=== PATIENT | female | born 1950 | race American Indian/Alaskan Native ===

== ENCOUNTER 2019-08-17 21:34 | Emergency (ER) | payer MEDICARE ==
--- NOTE | 2019-08-17 21:40 | Emergency Department Report ---
Blank Doc - Documentation Documentation: 69-year-old female that presents with SOB, chest tightness, and vomiting. This initial assessment/diagnostic orders/clinical plan/treatment(s) is/are subject to change based on patient's health status, clinical progression and re- assessment by fellow clinical providers in the ED. Further treatment and workup at subsequent clinical providers discretion. Patient/guardians urged not to elope from the ED as their condition may be serious if not clinically assessed and managed. Initial orders include: 1- Patient sent to MAIN ED for further evaluation and treatment 2- cardiac workup
[2019-08-17] MEDS ORDERED: IPRATROPIUM/ALBUTEROL SULFATE 3 ML AMPUL.NEB IH ONE (21:42)
[2019-08-17 22:17] LABS: Basophils % (Auto) 0.4 % (0.0-1.8); Eosinophils # (Auto) 0.5 K/mm3 (0.0-0.4); Eosinophils % (Auto) 5.1 % (0.0-4.3); Hematocrit 39.8 % (30.3-42.9); Hemoglobin 12.8 gm/dl (10.1-14.3); Lymphocytes # (Auto) 2.2 K/mm3 (1.2-5.4); Lymphocytes % (Auto) 24.8 % (13.4-35.0); Mean Corpuscular HGB Conc 32 % (30-34); Mean Corpuscular Volume 86 fl (79-97); Monocytes # (Auto) 0.6 K/mm3 (0.0-0.8); Monocytes % (Auto) 6.6 % (0.0-7.3); Platelet Count 270 K/mm3 (140-440); Red Blood Count 4.62 M/mm3 (3.65-5.03); Red Cell Distribution Width 15.4 % (13.2-15.2)
[2019-08-17 22:29] LABS: INR 0.91 (0.87-1.13); Partial Thromboplastin Time 31.7 Sec. (24.2-36.6)
[2019-08-17 22:34] LABS: Alanine Aminotransferase 15 units/L (7-56); Albumin 3.9 g/dL (3.9-5); BUN/Creatinine Ratio 7; Blood Urea Nitrogen 11 mg/dL (7-17); Calcium 8.8 mg/dL (8.4-10.2); Hemolysis Index 26
[2019-08-17] MEDS ORDERED: ONDANSETRON 4 MG/2 ML INJ IV ONE (22:48)
[2019-08-17] MEDS ORDERED: dexAMETHasone 20 MG/5 ML VIAL IV ONE (22:48)
[2019-08-17] MEDS ORDERED: ALBUTEROL 2.5 MG/3 ML NEBU IH ONE (22:48)
[2019-08-17] MEDS ORDERED: hydrALAZINE 20 MG/1 ML INJ IV ONE (22:48)
--- NOTE | 2019-08-17 22:51 | Emergency Department Report ---
HPI - General Chief Complaint: Dyspnea/Respdistress Time Seen by Provider: 08/17/19 21:39 - HPI HPI: 69-year-old -[place] female presents to the emergency department with complaint of a 10-day history of a mixed dry and productive cough, intermittent fevers and some shortness of breath. More recently patient has also started developing some nausea and vomiting. She saw her primary care physician, Dr. Singh, and says that she had some medication ordered for her that sounds like nebulized albuterol but she has not received it or used it prior to presentation. The patient also presents with elevated blood pressure and says she is compliant with her metoprolol. No recent travel or sick contacts at home. Patient is a tobacco smoker but denies any illicit drug use. She denies any chest pain, lower extremity swelling, back pain. ED Past Medical Hx - Past Medical History Hx Hypertension: Yes Additional medical history: hyperlipidemia - Surgical History Additional Surgical History: Bilat prosethetic ankle, R knee surgery - Social History Smoking Status: Never Smoker Substance Use Type: None - Medications Home Medications: Home Medications Medication Instructions Recorded Confirmed Last Taken Type Potassium Chloride [K-Dur] 20 meq PO QDAY 05/12/14 05/12/14 05/11/14 History Albuterol INH(or & Nicu Only) 2 puff IH QID PRN #8.5 gram 08/18/19 Unknown Rx [ProAir HFA Inhaler] Benzonatate [Tessalon Perles] 100 mg PO Q8HR PRN #20 capsule 08/18/19 Unknown Rx Ondansetron [Zofran Odt] 4 mg PO Q8HR PRN #15 tab.rapdis 08/18/19 Unknown Rx ED Review of Systems ROS: Stated complaint: BURKE/EMESIS Other details as noted in HPI Comment: All other systems reviewed and negative Constitutional: fever (intermittent). denies: chills Eyes: denies: eye pain, vision change ENT: denies: ear pain, throat pain Respiratory: cough, shortness of breath, wheezing Cardiovascular: denies: chest pain, palpitations, edema Gastrointestinal: nausea, vomiting. denies: abdominal pain Genitourinary: denies: dysuria, discharge Musculoskeletal: denies: back pain, arthralgia Skin: denies: rash, lesions Neurological: denies: headache, weakness Physical Exam - Physical Exam Vital Signs: Vital Signs 08/17/19 21:54 Temperature 98.1 F Pulse Rate 89 Respiratory 20 Rate Blood Pressure 210/125 O2 Sat by Pulse 96 Oximetry Physical Exam: GENERAL: The patient is well-developed well-nourished. HENT: Normocephalic. Atraumatic. Patient has moist mucous membranes. EYES: Extraocular motions are intact. Pupils equal reactive to light bilaterally. NECK: Supple. Trachea is midline. CHEST/LUNGS: Moderate wheezing throughout the chest. A dry cough heard during examination. No tachypnea or accessory muscle use. There is no respiratory distress noted. HEART/CARDIOVASCULAR: Regular. There is no tachycardia. There is no murmur. ABDOMEN: Abdomen is soft, nontender. Patient has normal bowel sounds. SKIN: Skin is warm and dry. NEURO: The patient is awake, alert, and oriented. The patient is cooperative. The patient has no focal neurologic deficits. Normal speech. MUSCULOSKELETAL: There is no tenderness or deformity. There is no evidence of acute injury. ED Course Vital Signs 08/17/19 21:54 Temperature 98.1 F Pulse Rate 89 Respiratory 20 Rate Blood Pressure 210/125 O2 Sat by Pulse 96 Oximetry - Reevaluation(s) Reevaluation #1: 08/18/19 00:43 Wells' Criteria for Pulmonary Embolism RESULT SUMMARY: 0.0 points Low risk group: 1.3% chance of PE in an ED population. Another study assigned scores ? 4 as PE Unlikely and had a 3% incidence of PE. INPUTS: Clinical signs and symptoms of DVT > 0 = No PE is #1 diagnosis OR equally likely > 0 = No Heart rate > 100 > 0 = No Immobilization at least 3 days OR surgery in the previous 4 weeks > 0 = No Previous, objectively diagnosed PE or DVT > 0 = No Hemoptysis > 0 = No Malignancy w/ treatment within 6 months or palliative > 0 = No ED Medical Decision Making - Lab Data Result diagrams: 08/17/19 21:56 08/17/19 21:56 - EKG Data -: EKG Interpreted by Me EKG shows normal: sinus rhythm (PVCs), axis, intervals, QRS complexes, ST-T waves Rate: normal - EKG Data When compared to previous EKG there are: previous EKG unavailable Interpretation: normal EKG - Radiology Data Radiology results: image reviewed interpreted by me: Chest x-ray does not show any acute process. There are no pleural effusions, obvious pneumonia and there is no pneumothorax. - Medical Decision Making This patient presents with a 10-day history of a mixed dry and productive cough, some shortness of breath, intermittent fevers. On examination she has moderate bronchospasm/wheezing but does not appear in any respiratory distress. Chest x- ray does not show any pneumonia, pleural effusions, or any other acute process. EKG does not show any signs of ST elevation [place] or dysrhythmia. The patient's labs have been unremarkable including CBC, metabolic panel, troponin, BNP except for some renal insufficiency. Creatinine is 1.5 and GFR is about 41. Patient was given a dose of Decadron, Zofran, hydralazine and 2 different breathing treatments. Upon reevaluation she was feeling greatly improved. Her blood pressure has come down to a much more reasonable level. The rest the patient's vital signs have been stable including being afebrile and no hypoxia. The patient is low on the Wells score criteria. She appears safe for discharge home at this time. She will be discharged home with Zofran, and albuterol inhaler and Tessalon Perles. We discussed the renal insufficiency and the need for outpatient follow-up and she has been given a referral for Dr. Llanos. We had a discussion about smoking cessation. The patient also has been instructed to return to the emergency department with any worsening of her symptoms or any acute distress. She understands and agrees to the plan. - Differential Diagnosis Pneumonia, COPD, CHF, asthma, bronchitis Critical Care Time: No Critical care attestation.: If time is entered above; I have spent that time in minutes in the direct care of this critically ill patient, excluding procedure time. ED Disposition Clinical Impression: Bronchitis, Bronchospasm, Renal insufficiency Hypertension Qualifiers: Hypertension type: essential hypertension Qualified Code(s): I10 - Essential (primary) hypertension Nausea & vomiting Qualifiers: Vomiting type: unspecified Vomiting Intractability: non-intractable Qualified Code(s): R11.2 - Nausea with vomiting, unspecified Disposition: DC-01 TO HOME OR SELFCARE Is pt being admited?: No Condition: Stable Instructions: How to Stop Smoking (ED), Acute Bronchitis (ED), Hypertension (ED), Bronchospasm (ED) Additional Instructions: Please follow-up with your primary care physician in the next few days. Return to the emergency department with any worsening of your symptoms or any acute distress. Please try and quit smoking. Please try and stay away from foods that are high in salt and caffeinated products. Keep a blood pressure log. Take your blood pressure medications as prescribed. I have given you a referral for a local lithographed plate inspector, Dr. Llanos, to follow-up re garding the decreased kidney function. Until that time, please stay away from anti-inflammatories such as ibuprofen, Aleve, naproxen, Advil. Prescriptions: Albuterol INH(or & Nicu Only) [ProAir HFA Inhaler] 2 puff IH QID PRN #8.5 gram PRN Reason: Shortness Of Breath Benzonatate [Tessalon Perles] 100 mg PO Q8HR PRN #20 capsule PRN Reason: Cough Ondansetron [Zofran Odt] 4 mg PO Q8HR PRN #15 tab.rapdis PRN Reason: Nausea Referrals: DARRIUS MCFADDEN MD [Primary Care Provider] - 2-3 Days Time of Disposition: 00:32
--- NOTE | 2019-08-17 23:17 | XRay Report ---
CHEST 1 VIEW INDICATION / CLINICAL INFORMATION: Chest Pain. COMPARISON: None available. FINDINGS: SUPPORT DEVICES: None. HEART / MEDIASTINUM: No significant abnormality. LUNGS / PLEURA: No significant pulmonary or pleural abnormality. No pneumothorax. ADDITIONAL FINDINGS: No significant additional findings. IMPRESSION: No acute pulmonary or pleural abnormality Signer Name: Isaac Santiago MD FACR Signed: 08/17/2019 11:13 PM Workstation Name: [id number]
[2019-08-18 00:31] VITALS: BP 162/81
== END 2019-08-18 01:13 | disposition home or self-care (01) ==
LOC: ED 21:34
DX: J40 Bronchitis, not specified as acute or chronic (principal); J98.01 Acute bronchospasm; I10 Essential (primary) hypertension; R11.2 Nausea with vomiting, unspecified; E78.5 Hyperlipidemia, unspecified; N28.9 Disorder of kidney and ureter, unspecified
CPT/HCPCS: 36415; 71045; 80053; 83690; 83880; 84484; 85025; 85610; 85730; 93005; 93010; 94640; 96374; 96375; 99284; J0360; J1100; J2405; 94644; 94760

== ENCOUNTER 2019-09-05 15:04 | Emergency (ER) | payer MEDICARE ==
[2019-09-05] MEDS ORDERED: IPRATROPIUM/ALBUTEROL SULFATE 3 ML AMPUL.NEB IH ONE (15:45)
--- NOTE | 2019-09-05 15:59 | XRay Report ---
CHEST 1 VIEW, 09/05/2019 3:29 PM CLINICAL INFORMATION/INDICATION: Shortness of breath COMPARISON: Chest radiograph, 08/21/2019 FINDINGS: SUPPORT DEVICES: None. HEART: The cardiac silhouette is normal in size. LUNGS/PLEURA: The lungs are clear of focal airspace disease or significant pleural effusion. ADDITIONAL FINDINGS: No additional acute findings. IMPRESSION: 1. No evidence of acute cardiopulmonary process. Signer Name: Livia Schmidt MD Signed: 09/05/2019 3:55 PM Workstation Name: [id number]
[2019-09-05 16:34] LABS: Hematocrit 40.4 % (30.3-42.9); Hemoglobin 13.1 gm/dl (10.1-14.3); Mean Corpuscular HGB Conc 33 % (30-34); Mean Corpuscular Volume 86 fl (79-97); Platelet Count 269 K/mm3 (140-440); Red Blood Count 4.68 M/mm3 (3.65-5.03); Red Cell Distribution Width 15.1 % (13.2-15.2)
[2019-09-05 16:45] LABS: BUN/Creatinine Ratio 13; Blood Urea Nitrogen 16 mg/dL (7-17); Calcium 8.8 mg/dL (8.4-10.2); Hemolysis Index 11; INR 0.93 (0.87-1.13); Partial Thromboplastin Time 34.6 Sec. (24.2-36.6)
[2019-09-05 16:46] LABS: Creatine Kinase MB 3.6 ng/mL (0.0-4.0)
[2019-09-05 16:48] LABS: C-Reactive Protein 1.2 mg/dL (0.00-1.30)
[2019-09-05] MEDS ORDERED: methylPREDNISolone Sod Succinate 125 MG/2 ML INJ IV ONE (17:01)
[2019-09-05] MEDS ORDERED: ALBUTEROL 2.5 MG/3 ML NEBU IH ONE (17:01)
[2019-09-05] MEDS ORDERED: MAGNESIUM SULFATE 2 GM/50 ML BAG IV ONE (17:01)
--- NOTE | 2019-09-05 17:02 | Emergency Department Report ---
ED Shortness of Breath HPI - General Chief Complaint: Dyspnea/Respdistress Stated Complaint: BURKE, FEVER,VOMIT Time Seen by Provider: 09/05/19 15:44 Source: patient Mode of arrival: Ambulatory Limitations: No Limitations - History of Present Illness Initial Comments: 69-year-old female is a poor historian. She states never been treated with asthma medicine. However the record does indicate that she received nebs the last time she was here. Additionally the record states she was likely prescribed a bronchodilator by her primary care physician. Indicates she presents with wheezing. She states she has had a productive cough with mayes sputum and no hemoptysis. She denies fever or chills. She denies leg swelling. She denies chest pain pressure or tightness. Again she states she has not had anything like this before but it appears that her presentation is remarkably similar to the previous records. Medicine reconciliation as per her prior visit. Home Medications Medication Instructions Recorded Confirmed Last Taken Type Potassium Chloride [K-Dur] 20 meq PO QDAY 05/12/14 05/12/14 05/11/14 History Albuterol INH(or & Nicu Only) 2 puff IH QID PRN #8.5 gram 08/18/19 Unknown Rx [ProAir HFA Inhaler] Benzonatate [Tessalon Perles] 100 mg PO Q8HR PRN #20 capsule 08/18/19 Unknown Rx Ondansetron [Zofran Odt] 4 mg PO Q8HR PRN #15 tab.rapdis 08/18/19 Unknown Rx ALBUTEROL NEB's [Proventil 0.083% 2.5 mg IH TID PRN #30 neb 08/21/19 Unknown Rx NEBS] Azithromycin [Zithromax TAB] 250 mg PO QDAY #4 tablet 08/21/19 Unknown Rx Inhaler, Assist Devices [Space 1 each MC PRN PRN #1 spacer 08/21/19 Unknown Rx Chamber Plus] Nebulizer Accessories [Aeroneb Go] 1 each MC PRN PRN #1 each 08/21/19 Unknown Rx Nebulizer [Aeroneb Go Nebulizer] 1 each MC PRN #1 each 08/21/19 Unknown Rx Prior discharge summary 08/21/2019: ED Disposition Clinical Impression: Acute bronchitis, Hypertension Disposition: DC-01 TO HOME OR SELFCARE Is pt being admited?: No Does the pt Need Aspirin: No Condition: Stable Instructions: Acute Bronchitis (ED), Hypertension (ED) Additional Instructions: Take the medication as prescribed. Follow-up with your doctor or doctor/clinic provided. Return if symptoms worsen as indicated by your discharge instructions. Prescriptions: Nebulizer Accessories [Aeroneb Go] 1 each MC PRN PRN #1 each PRN Reason: Wheezing Nebulizer [Aeroneb Go Nebulizer] 1 each MC PRN #1 each ALBUTEROL NEB's [Proventil 0.083% NEBS] 2.5 mg IH TID PRN #30 neb PRN Reason: Wheezing Inhaler, Assist Devices [Space Chamber Plus] 1 each MC PRN PRN #1 spacer PRN Reason: Wheezing Azithromycin [Zithromax TAB] 250 mg PO QDAY #4 tablet Referrals: PRIMARY CARE, [Referring] - 3-5 Days Time of Disposition: 23:46 Complaint: cough -: days(s) Severity: moderate Consistency: constant Known History Of: other (See above history) Context: recent URI - Related Data Home Medications Medication Instructions Recorded Confirmed Last Taken Potassium Chloride [K-Dur] 20 meq PO QDAY 05/12/14 05/12/14 05/11/14 Previous Rx's Medication Instructions Recorded Last Taken Type Benzonatate [Tessalon Perles] 100 mg PO Q8HR PRN #20 capsule 08/18/19 Unknown Rx Ondansetron [Zofran Odt] 4 mg PO Q8HR PRN #15 tab.rapdis 08/18/19 Unknown Rx Inhaler, Assist Devices [Space 1 each MC PRN PRN #1 spacer 08/21/19 Unknown Rx Chamber Plus] Prednisone [predniSONE 10 mg 10 mg PO .TAPER #1 tab.ds.pk 08/21/19 Unknown Rx (6-Day Pack, 21 Tabs)] ALBUTEROL NEB's [Proventil 0.083% 2.5 mg IH TID PRN #30 neb 09/05/19 Unknown Rx NEBS] Albuterol INH(or & Nicu Only) 2 puff IH QID PRN #8.5 gram 09/05/19 Unknown Rx [ProAir HFA Inhaler] Azithromycin [Zithromax TAB] 250 mg PO QDAY #4 tablet 09/05/19 Unknown Rx Nebulizer Accessories [Aeroneb Go] 1 each MC PRN PRN #1 each 09/05/19 Unknown Rx Nebulizer [Aeroneb Go Nebulizer] 1 each MC PRN #1 each 09/05/19 Unknown Rx predniSONE [Deltasone] 60 mg PO QDAY #20 tab 09/05/19 Unknown Rx Allergies Allergy/AdvReac Type Severity Reaction Status Date / Time codeine Allergy Vomiting Verified 05/12/14 06:20 Penicillins Allergy Vomiting Verified 05/12/14 06:19 Sulfa (Sulfonamide AdvReac Rash Verified 05/12/14 06:20 Antibiotics) ED Review of Systems ROS: Stated complaint: BURKE, FEVER,VOMIT Other details as noted in HPI Constitutional: denies: chills, fever Eyes: denies: eye pain, eye discharge, vision change ENT: denies: ear pain, throat pain Respiratory: cough, shortness of breath, wheezing Cardiovascular: denies: chest pain, palpitations Endocrine: no symptoms reported Gastrointestinal: denies: abdominal pain, nausea, diarrhea Genitourinary: denies: urgency, dysuria, discharge Musculoskeletal: denies: back pain, joint swelling, arthralgia Skin: denies: rash, lesions Neurological: denies: headache, weakness, paresthesias Psychiatric: denies: anxiety, depression Hematological/Lymphatic: denies: easy bleeding, easy bruising ED Past Medical Hx - Past Medical History Previous Medical History?: Yes Hx Hypertension: Yes Additional medical history: hyperlipidemia - Surgical History Past Surgical History?: Yes Additional Surgical History: Bilat prosethetic ankle, R knee surgery - Social History Smoking Status: Former Smoker Substance Use Type: None - Medications Home Medications: Home Medications Medication Instructions Recorded Confirmed Last Taken Type Potassium Chloride [K-Dur] 20 meq PO QDAY 05/12/14 05/12/14 05/11/14 History Benzonatate [Tessalon Perles] 100 mg PO Q8HR PRN #20 capsule 08/18/19 Unknown Rx Ondansetron [Zofran Odt] 4 mg PO Q8HR PRN #15 tab.rapdis 08/18/19 Unknown Rx Inhaler, Assist Devices [Space 1 each MC PRN PRN #1 spacer 08/21/19 Unknown Rx Chamber Plus] Prednisone [predniSONE 10 mg 10 mg PO .TAPER #1 tab.ds.pk 08/21/19 Unknown Rx (6-Day Pack, 21 Tabs)] ALBUTEROL NEB's [Proventil 0.083% 2.5 mg IH TID PRN #30 neb 09/05/19 Unknown Rx NEBS] Albuterol INH(or & Nicu Only) 2 puff IH QID PRN #8.5 gram 09/05/19 Unknown Rx [ProAir HFA Inhaler] Azithromycin [Zithromax TAB] 250 mg PO QDAY #4 tablet 09/05/19 Unknown Rx Nebulizer Accessories [Aeroneb Go] 1 each MC PRN PRN #1 each 09/05/19 Unknown Rx Nebulizer [Aeroneb Go Nebulizer] 1 each MC PRN #1 each 09/05/19 Unknown Rx predniSONE [Deltasone] 60 mg PO QDAY #20 tab 09/05/19 Unknown Rx ED Physical Exam - General Limitations: No Limitations General appearance: alert, in no apparent distress - Head Head exam: Present: atraumatic, normocephalic - Eye Eye exam: Present: normal appearance. Absent: scleral icterus - ENT ENT exam: Present: mucous membranes moist - Neck Neck exam: Present: normal inspection - Respiratory Respiratory exam: Present: wheezes (Bilateral), rhonchi, prolonged expiratory, other (Mild increased work of breathing). Absent: respiratory distress - Cardiovascular Cardiovascular Exam: Present: regular rate, normal rhythm. Absent: systolic murmur, diastolic murmur, rubs, gallop - GI/Abdominal GI/Abdominal exam: Present: soft, normal bowel sounds. Absent: distended, tenderness, guarding, rebound, rigid - Extremities Exam Extremities exam: Present: normal inspection - Back Exam Back exam: Present: normal inspection - Neurological Exam Neurological exam: Present: alert, oriented X3, CN II-XII intact. Absent: motor sensory deficit - Psychiatric Psychiatric exam: Present: normal affect, normal mood - Skin Skin exam: Present: warm, dry, intact, normal color. Absent: rash ED Course Vital Signs 09/05/19 09/05/19 09/05/19 15:10 15:37 16:24 Temperature 98.1 F Pulse Rate 84 85 85 Respiratory 28 H 17 Rate Blood Pressure 220/129 196/110 Blood Pressure 196/110 [Left] O2 Sat by Pulse 96 96 Oximetry - Reevaluation(s) Reevaluation #1: On reexamination the patient's wheezing has improved. She does have some residual expiratory wheeze. Her sat is 95%. She states she feels much better. She will receive magnesium Solu-Medrol and additional albuterol. I think she will be appropriate for outpatient management at this point. 09/05/19 17:03 Reevaluation #2: Patient reiterates that she feels well enough to go home. I have gotten a sat on her after she ambulates. It was 96%. She still has some wheeze. She will be discharged to continue on steroids a azithromycin and inhalers. She will be referred to control valve technician and primary care for further care and evaluation 09/05/19 18:55 ED Medical Decision Making - Lab Data Result diagrams: 09/05/19 16:06 09/05/19 16:06 Laboratory Results - last 24 hr 09/05/19 09/05/19 09/05/19 16:06 16:06 16:06 WBC 10.7 RBC 4.68 Hgb 13.1 Hct 40.4 MCV 86 MCH 28 MCHC 33 RDW 15.1 Plt Count 269 Eos % (Auto) Form Tamper Operator PT 12.6 INR 0.93 APTT 34.6 D-Dimer 215.52 Sodium 137 Potassium 4.5 Chloride 104.0 Carbon Dioxide 16 L Anion Gap 22 BUN 16 Creatinine 1.2 Estimated GFR 54 BUN/Creatinine Ratio 13 Glucose 120 H Lactic Acid Calcium 8.8 Magnesium 1.60 L Ferritin Lactate Dehydrogenase CK-MB (CK-2) 3.6 Troponin T < 0.010 C-Reactive Protein 09/05/19 09/05/19 09/05/19 16:06 16:06 16:06 WBC RBC Hgb Hct MCV MCH MCHC RDW Plt Count Eos % (Auto) PT INR APTT D-Dimer Sodium Potassium Chloride Carbon Dioxide Anion Gap BUN Creatinine Estimated GFR BUN/Creatinine Ratio Glucose Lactic Acid 0.90 Calcium Magnesium Ferritin 74.4 Lactate Dehydrogenase 196 H CK-MB (CK-2) Troponin T C-Reactive Protein 1.20 - EKG Data -: EKG Interpreted by Me EKG shows normal: sinus rhythm, axis, intervals, QRS complexes, ST-T waves Rate: normal - EKG Data Interpretation: no acute changes - Radiology Data Radiology results: report reviewed (No acute process), image reviewed Critical care attestation.: If time is entered above; I have spent that time in minutes in the direct care of this critically ill patient, excluding procedure time. ED Disposition Clinical Impression: Reactive airways dysfunction syndrome, Essential hypertension Disposition: DC- TO HOME OR SELFCARE Is pt being admited?: No Does the pt Need Aspirin: No Condition: Stable Instructions: Asthma (ED), Bronchospasm (ED), Reactive Airways Disease (ED), Acute Bronchitis (ED), Hypertension (ED) Additional Instructions: Return to the emergency department for any worsening symptoms. Check your temperature. Further evaluation with a lung specialist is recommended. See referral. Also follow-up with your primary care physician. Rx as directed. Prescriptions: Nebulizer Accessories [Aeroneb Go] 1 each MC PRN PRN #1 each PRN Reason: Wheezing Nebulizer [Aeroneb Go Nebulizer] 1 each MC PRN #1 each predniSONE [Deltasone] 60 mg PO QDAY #20 tab Albuterol INH(or & Nicu Only) [ProAir HFA Inhaler] 2 puff IH QID PRN #8.5 gram PRN Reason: Shortness Of Breath ALBUTEROL NEB's [Proventil 0.083% NEBS] 2.5 mg IH TID PRN #30 neb PRN Reason: Wheezing Azithromycin [Zithromax TAB] 250 mg PO QDAY #4 tablet Referrals: TRACI THOMSON MD [Staff Physician] - 3-5 Days PRIMARY CARE, [Primary Care Provider] - 2-3 Days Time of Disposition: 18:58
[2019-09-05 17:18] LABS: RBC Morphology Normal; Total Cells Counted 100
[2019-09-05 19:01] LABS: Bilirubin,Urine NEG (Negative); Blood,Urine NEG (Negative); Color,Urine Yellow (Yellow); Mucus,Urine FEW /HPF; Urobilinogen,Urine < 2.0 mg/dL (<2.0)
[2019-09-05 19:41] VITALS: BP 131/95
== END 2019-09-05 19:48 | disposition home or self-care (01) ==
LOC: ED 15:04
DX: J68.3 Other acute and subacute respiratory conditions due to chemicals, gases, fumes and vapors (principal); I10 Essential (primary) hypertension; E78.5 Hyperlipidemia, unspecified; Z98.890 Other specified postprocedural states; Z87.891 Personal history of nicotine dependence; Z79.2 Long term (current) use of antibiotics; Z79.899 Other long term (current) drug therapy; Z88.0 Allergy status to penicillin; Z88.2 Allergy status to sulfonamides; Z88.8 Allergy status to other drugs, medicaments and biological substances
CPT/HCPCS: 36415; 71045; 80048; 81001; 82140; 82550; 82553; 82728; 83615; 83735; 84145; 84484; 85007; 85025; 85379; 85610; 85730; 86140; 87040; 93005; 93010; 94640; 96365; 96375; 99284; J2930; J3475; 94644

== ENCOUNTER 2019-11-11 07:15 | Emergency (ER) | payer MEDICARE ==
[2019-11-11] MEDS ORDERED: IPRATROPIUM 0.02% NEBU 2.5 ML IH ONE ×2 (07:31→07:41)
[2019-11-11] MEDS ORDERED: ALBUTEROL 2.5 MG/3 ML NEBU IH ONE ×2 (07:31→07:40)
[2019-11-11 07:39] VITALS: BP 178/106
--- NOTE | 2019-11-11 07:51 | Emergency Department Report ---
ED General Adult HPI - General Chief complaint: Dyspnea/Respdistress Stated complaint: BURKE Time Seen by Provider: 11/11/19 07:48 Source: patient Mode of arrival: Ambulatory Limitations: No Limitations - History of Present Illness Initial comments: This is a 69-year-old female that presents with wheezing. As per my last encounter with her in 09/05/2019: - History of Present Illness Initial Comments: 69-year-old female is a poor historian. She states never been treated with asthma medicine. However the record does indicate that she received nebs the last time she was here. Additionally the record states she was likely prescribed a bronchodilator by her primary care physician. Indicates she presents with wheezing. She states she has had a productive cough with mayes sputum and no hemoptysis. She denies fever or chills. She denies leg swelling. She denies chest pain pressure or tightness. Again she states she has not had anything like this before but it appears that her presentation is remarkably similar to the previous records. Medicine reconciliation as per her prior visit. Home Medications Medication Instructions Recorded Confirmed Last Taken Type Potassium Chloride [K-Dur] 20 meq PO QDAY 05/12/14 05/12/14 05/11/14 History Albuterol INH(or & Nicu Only) 2 puff IH QID PRN #8.5 gram 08/18/19 Unknown Rx [ProAir HFA Inhaler] Benzonatate [Tessalon Perles] 100 mg PO Q8HR PRN #20 capsule 08/18/19 Unknown Rx Ondansetron [Zofran Odt] 4 mg PO Q8HR PRN #15 tab.rapdis 08/18/19 Unknown Rx ALBUTEROL NEB's [Proventil 0.083% 2.5 mg IH TID PRN #30 neb 08/21/19 Unknown Rx NEBS] Azithromycin [Zithromax TAB] 250 mg PO QDAY #4 tablet 08/21/19 Unknown Rx Inhaler, Assist Devices [Space 1 each MC PRN PRN #1 spacer 08/21/19 Unknown Rx Chamber Plus] Nebulizer Accessories [Aeroneb Go] 1 each MC PRN PRN #1 each 08/21/19 Unknown Rx Nebulizer [Aeroneb Go Nebulizer] 1 each MC PRN #1 each 08/21/19 Unknown Rx Prior discharge summary 08/21/2019: ED Disposition Clinical Impression: Acute bronchitis, Hypertension Disposition: DC-01 TO HOME OR SELFCARE Is pt being admited?: No Does the pt Need Aspirin: No Condition: Stable Instructions: Acute Bronchitis (ED), Hypertension (ED) Additional Instructions: Take the medication as prescribed. Follow-up with your doctor or doctor/clinic provided. Return if symptoms worsen as indicated by your discharge instructions. Prescriptions: Nebulizer Accessories [Aeroneb Go] 1 each MC PRN PRN #1 each PRN Reason: Wheezing Nebulizer [Aeroneb Go Nebulizer] 1 each MC PRN #1 each ALBUTEROL NEB's [Proventil 0.083% NEBS] 2.5 mg IH TID PRN #30 neb PRN Reason: Wheezing Inhaler, Assist Devices [Space Chamber Plus] 1 each MC PRN PRN #1 spacer PRN Reason: Wheezing Azithromycin [Zithromax TAB] 250 mg PO QDAY #4 tablet Referrals: PRIMARY CARE, [Referring] - 3-5 Days Time of Disposition: 23:46 Patient is a very pleasant lady. She does seem to have some degree of denial regarding her pulmonary diagnosis. She has not followed up. She states that she did get the nebulizer and machine for home use. She states she was unable to find my office. She does remember me. I explained to her the system for primary care. I believe that in the past she is actually seen the geospatial engineer as well. I am not quite sure why she has ongoing confusion regarding her follow-up. She denies any COVID contacts. -: days(s) Radiation: other (No complaints of pain) Associated Symptoms: denies other symptoms, cough (Somewhat mayes sputum), shortness of breath (Wheezing) - Related Data Home Medications Medication Instructions Recorded Confirmed Last Taken Potassium Chloride [K-Dur] 20 meq PO QDAY 05/12/14 05/12/14 05/11/14 Previous Rx's Medication Instructions Recorded Last Taken Type Benzonatate [Tessalon Perles] 100 mg PO Q8HR PRN #20 capsule 08/18/19 Unknown Rx Ondansetron [Zofran Odt] 4 mg PO Q8HR PRN #15 tab.rapdis 08/18/19 Unknown Rx Inhaler, Assist Devices [Space 1 each MC PRN PRN #1 spacer 08/21/19 Unknown Rx Chamber Plus] Prednisone [predniSONE 10 mg 10 mg PO .TAPER #1 tab.ds.pk 08/21/19 Unknown Rx (6-Day Pack, 21 Tabs)] Nebulizer Accessories [Aeroneb Go] 1 each PRN PRN #1 each 09/05/19 Unknown Rx Nebulizer [Aeroneb Go Nebulizer] 1 each PRN #1 each 09/05/19 Unknown Rx ALBUTEROL NEB's [Proventil 0.083% 2.5 mg IH TID PRN #30 neb 11/11/19 Unknown Rx NEBS] Albuterol INH(or & Nicu Only) 2 puff IH QID PRN #8.5 gram 11/11/19 Unknown Rx [ProAir HFA Inhaler] Azithromycin [Zithromax TAB] 250 mg PO QDAY #4 tablet 11/11/19 Unknown Rx predniSONE [Deltasone] 60 mg PO QDAY #20 tab 11/11/19 Unknown Rx Allergies Allergy/AdvReac Type Severity Reaction Status Date / Time codeine Allergy Vomiting Verified 05/12/14 06:20 Penicillins Allergy Vomiting Verified 05/12/14 06:19 Sulfa (Sulfonamide AdvReac Rash Verified 05/12/14 06:20 Antibiotics) ED Review of Systems ROS: Stated complaint: BURKE Other details as noted in HPI Constitutional: denies: chills, fever Eyes: denies: eye pain, vision change ENT: denies: ear pain, throat pain Respiratory: cough, wheezing Cardiovascular: denies: chest pain, palpitations Endocrine: no symptoms reported Gastrointestinal: denies: abdominal pain, nausea, diarrhea Genitourinary: denies: urgency, dysuria Musculoskeletal: denies: back pain, joint swelling, arthralgia Skin: denies: rash, lesions Neurological: denies: headache, weakness, paresthesias Psychiatric: denies: anxiety, depression Hematological/Lymphatic: denies: easy bleeding, easy bruising ED Past Medical Hx - Past Medical History Previous Medical History?: Yes Hx Hypertension: Yes Additional medical history: hyperlipidemia - Surgical History Additional Surgical History: Bilat prosethetic ankle, R knee surgery - Social History Smoking Status: Former Smoker Substance Use Type: None - Medications Home Medications: Home Medications Medication Instructions Recorded Confirmed Last Taken Type Potassium Chloride [K-Dur] 20 meq PO QDAY 05/12/14 05/12/14 05/11/14 History Benzonatate [Tessalon Perles] 100 mg PO Q8HR PRN #20 capsule 08/18/19 Unknown Rx Ondansetron [Zofran Odt] 4 mg PO Q8HR PRN #15 tab.rapdis 08/18/19 Unknown Rx Inhaler, Assist Devices [Space 1 each MC PRN PRN #1 spacer 08/21/19 Unknown Rx Chamber Plus] Prednisone [predniSONE 10 mg 10 mg PO .TAPER #1 tab.ds.pk 08/21/19 Unknown Rx (6-Day Pack, 21 Tabs)] Nebulizer Accessories [Aeroneb Go] 1 each PRN PRN #1 each 09/05/19 Unknown Rx Nebulizer [Aeroneb Go Nebulizer] 1 each PRN #1 each 09/05/19 Unknown Rx ALBUTEROL NEB's [Proventil 0.083% 2.5 mg IH TID PRN #30 neb 11/11/19 Unknown Rx NEBS] Albuterol INH(or & Nicu Only) 2 puff IH QID PRN #8.5 gram 11/11/19 Unknown Rx [ProAir HFA Inhaler] Azithromycin [Zithromax TAB] 250 mg PO QDAY #4 tablet 11/11/19 Unknown Rx predniSONE [Deltasone] 60 mg PO QDAY #20 tab 11/11/19 Unknown Rx ED Physical Exam - General Limitations: No Limitations General appearance: alert, in no apparent distress - Head Head exam: Present: atraumatic, normocephalic - Eye Eye exam: Present: normal appearance. Absent: scleral icterus - ENT ENT exam: Present: mucous membranes moist - Neck Neck exam: Present: normal inspection - Respiratory Respiratory exam: Present: wheezes (Bilaterally). Absent: normal lung sounds bi laterally, respiratory distress - Cardiovascular Cardiovascular Exam: Present: regular rate, normal rhythm. Absent: systolic murmur, diastolic murmur, rubs, gallop - GI/Abdominal GI/Abdominal exam: Present: soft, normal bowel sounds. Absent: distended, tenderness, guarding, rebound - Extremities Exam Extremities exam: Present: normal inspection, full ROM, normal capillary refill. Absent: tenderness, pedal edema, joint swelling, calf tenderness - Back Exam Back exam: Present: normal inspection - Neurological Exam Neurological exam: Present: alert, oriented X3, CN II-XII intact. Absent: motor sensory deficit - Psychiatric Psychiatric exam: Present: normal affect, normal mood - Skin Skin exam: Present: warm, dry, intact, normal color. Absent: rash ED Course Vital Signs 11/11/19 11/11/19 11/11/19 07:20 08:03 08:08 Temperature 98.5 F Pulse Rate 81 Pulse Rate [ 83 Anterior Bilateral Throughout] Respiratory 24 24 Rate Respiratory 18 Rate [Anterior Bilateral Throughout] Blood Pressure 178/106 O2 Sat by Pulse 97 Oximetry 11/11/19 11/11/19 08:15 09:10 Temperature Pulse Rate 106 H Pulse Rate [ 84 Anterior Bilateral Throughout] Respiratory 22 Rate Respiratory 18 Rate [Anterior Bilateral Throughout] Blood Pressure O2 Sat by Pulse 96 Oximetry - Reevaluation(s) Reevaluation #1: Patient was given mag and Solu-Medrol, DuoNeb's. On reevaluation she was totally clear. She was ready for discharge. She will be referred for follow- up. 11/11/19 10:24 ED Medical Decision Making - Lab Data Result diagrams: 11/11/19 Unknown 11/11/19 Unknown Laboratory Results - last 24 hr 11/11/19 11/11/19 11/11/19 09:11 Unknown Unknown WBC 8.5 RBC 4.56 Hgb 12.8 Hct 39.0 MCV 86 MCH 28 MCHC 33 RDW 14.7 Plt Count 289 Lymph % (Auto) 16.1 Mccormick % (Auto) 6.6 Eos % (Auto) 10.0 H Baso % (Auto) 0.3 Lymph # 1.4 Mccormick # 0.6 Eos # 0.9 H Baso # 0.0 Seg Neutrophils % 67.0 Seg Neutrophils # 5.7 Sodium 139 TNR Potassium 4.1 TNR Chloride 102.5 TNR Carbon Dioxide 21 L TNR Anion Gap 20 TNR BUN 17 TNR Creatinine 1.4 H TNR Estimated GFR 45 TNR BUN/Creatinine Ratio 12 TNR Glucose 131 H TNR Calcium 9.3 TNR Critical care attestation.: If time is entered above; I have spent that time in minutes in the direct care of this critically ill patient, excluding procedure time. ED Disposition Clinical Impression: Acute exacerbation of COPD with asthma Disposition: DC- TO HOME OR SELFCARE Is pt being admited?: No Does the pt Need Aspirin: No Condition: Stable Instructions: Asthma (ED) Additional Instructions: Please see 3 possibilities for follow-up. 1 is an internal medicine doctor, another is a lung specialist the third is a local clinic. Please follow-up with 1 or more of the above. Rx as directed. Return as needed. Prescriptions: predniSONE [Deltasone] 60 mg PO QDAY #20 tab Albuterol INH(or & Nicu Only) [ProAir HFA Inhaler] 2 puff IH QID PRN #8.5 gram PRN Reason: Shortness Of Breath ALBUTEROL NEB's [Proventil 0.083% NEBS] 2.5 mg IH TID PRN #30 neb PRN Reason: Wheezing Azithromycin [Zithromax TAB] 250 mg PO QDAY #4 tablet Referrals: PRIMARY CAREMD [Primary Care Provider] - 3-5 Days SHAGGY CUTLER MD [Staff Physician] - 3-5 Days BUCKY HAWTHORNE MD [Staff Physician] - 3-5 Days [facility] [Provider Group] - 3-5 Days Time of Disposition: 10:25
[2019-11-11] MEDS ORDERED: IPRATROPIUM/ALBUTEROL SULFATE 3 ML AMPUL.NEB IH ONE (08:00)
[2019-11-11] MEDS ORDERED: MAGNESIUM SULFATE 2 GM/50 ML BAG IV ONE (08:07)
[2019-11-11] MEDS ORDERED: methylPREDNISolone Sod Succinate 125 MG/2 ML INJ IV ONE (08:07)
[2019-11-11 08:18] LABS: Basophils % (Auto) 0.3 % (0.0-1.8); Eosinophils # (Auto) 0.9 K/mm3 (0.0-0.4); Hemoglobin 12.8 gm/dl (10.1-14.3); Lymphocytes # (Auto) 1.4 K/mm3 (1.2-5.4); Lymphocytes % (Auto) 16.1 % (13.4-35.0); Mean Corpuscular HGB Conc 33 % (30-34); Mean Corpuscular Volume 86 fl (79-97); Monocytes # (Auto) 0.6 K/mm3 (0.0-0.8); Monocytes % (Auto) 6.6 % (0.0-7.3); Platelet Count 289 K/mm3 (140-440); Red Blood Count 4.56 M/mm3 (3.65-5.03); Red Cell Distribution Width 14.7 % (13.2-15.2)
--- NOTE | 2019-11-11 08:36 | XRay Report ---
CHEST 1 VIEW INDICATION / CLINICAL INFORMATION: BURKE. COMPARISON: 09/05/2019 FINDINGS: SUPPORT DEVICES: None. HEART / MEDIASTINUM: No significant abnormality. LUNGS / PLEURA: No significant pulmonary or pleural abnormality. No pneumothorax. ADDITIONAL FINDINGS: No significant additional findings. IMPRESSION: 1. No significant change Signer Name: Peng Cooper MD Signed: 11/11/2019 8:31 AM Workstation Name: [id number]
[2019-11-11 08:38] LABS: Hemolysis Index 195
[2019-11-11 08:54] LABS: Blood Urea Nitrogen TNR mg/dL (7-17)
[2019-11-11 08:55] LABS: BUN/Creatinine Ratio TNR; Calcium TNR mg/dL (8.4-10.2)
[2019-11-11 10:00] LABS: Calcium 9.3 mg/dL (8.4-10.2)
== END 2019-11-11 10:59 | disposition home or self-care (01) ==
LOC: ED 07:15
DX: J44.1 Chronic obstructive pulmonary disease with (acute) exacerbation (principal); I10 Essential (primary) hypertension; Z87.891 Personal history of nicotine dependence; Z79.899 Other long term (current) drug therapy; Z98.890 Other specified postprocedural states; Z88.0 Allergy status to penicillin; Z88.2 Allergy status to sulfonamides; Z88.6 Allergy status to analgesic agent
CPT/HCPCS: 36415; 71045; 80048; 85025; 94640; 96365; 96375; 99284; J2930; J3475; 94644

== ENCOUNTER 2020-09-16 11:41 | Emergency (ER) | payer MEDICARE ==
[2020-09-16 11:46] VITALS: BP 174/95
--- NOTE | 2020-09-16 12:35 | XRay Report ---
Right hand radiograph, 3 views. HISTORY: Pain after injury. COMPARISON: None FINDINGS: Mild diffuse osteopenia. 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 There is no acute fracture or malalignment. No focal soft tissue abnormality. IMPRESSION: No acute osseous findings of the right hand. Signer Name: Peng Valverde MD Signed: 09/16/2020 12:30 PM Workstation Name: [id number]
--- NOTE | 2020-09-16 13:10 | Emergency Department Report ---
ED General Adult HPI - General Chief complaint: Extremity Injury, Upper Stated complaint: RT HAND INJURY Time Seen by Provider: 09/16/20 11:56 Source: patient Mode of arrival: Ambulatory Limitations: No Limitations - History of Present Illness Initial comments: 70-year-old -[place] female patient presents with complaints of right hand pain after an injury today. Patient states her hand was crushed on a metal part of the garage door prior to arrival. She rates her pain as 8/10 in severity states it worsens to touch and with movement. Patient denies any numbness/tingling or skin changes. Pain radiates up her arm per patient. She denies taking any OTC medication for her symptoms. Patient retains full range of motion of the hand and fingers. Severity scale (0 -10): 10 - Related Data Home Medications Medication Instructions Recorded Confirmed Last Taken Potassium Chloride [K-Dur] 20 meq PO QDAY 05/12/14 05/12/14 05/11/14 Previous Rx's Medication Instructions Recorded Last Taken Type Benzonatate [Tessalon Perles] 100 mg PO Q8HR PRN #20 capsule 08/18/19 Unknown Rx Ondansetron [Zofran Odt] 4 mg PO Q8HR PRN #15 tab.rapdis 08/18/19 Unknown Rx Inhaler, Assist Devices [Space 1 each PRN PRN #1 spacer 08/21/19 Unknown Rx Chamber Plus] Prednisone [predniSONE 10 mg 10 mg PO .TAPER #1 tab.ds.pk 08/21/19 Unknown Rx (6-Day Pack, 21 Tabs)] Nebulizer Accessories [Aeroneb Go] 1 each PRN PRN #1 each 09/05/19 Unknown Rx Nebulizer [Aeroneb Go Nebulizer] 1 each PRN #1 each 09/05/19 Unknown Rx ALBUTEROL NEB's [Proventil 0.083% 2.5 mg IH TID PRN #30 neb 11/11/19 Unknown Rx NEBS] Albuterol Mdi (or & Nicu Only) 2 puff IH QID PRN #8.5 gram 11/11/19 Unknown Rx [ProAir HFA Inhaler] Azithromycin [Zithromax TAB] 250 mg PO QDAY #4 tablet 11/11/19 Unknown Rx predniSONE [Deltasone] 60 mg PO QDAY #20 tab 11/11/19 Unknown Rx Naproxen 500 mg PO BID PRN #16 tablet 09/16/20 Unknown Rx Allergies Allergy/AdvReac Type Severity Reaction Status Date / Time codeine Allergy Vomiting Verified 05/12/14 06:20 Penicillins Allergy Vomiting Verified 05/12/14 06:19 Sulfa (Sulfonamide AdvReac Rash Verified 05/12/14 06:20 Antibiotics) ED Review of Systems ROS: Stated complaint: RT HAND INJURY Other details as noted in HPI Musculoskeletal: arthralgia. denies: joint swelling Skin: denies: lesions, change in color Neurological: denies: numbness, paresthesias Hematological/Lymphatic: denies: easy bruising ED Past Medical Hx - Past Medical History Previous Medical History?: Yes Hx Hypertension: Yes Additional medical history: hyperlipidemia - Surgical History Past Surgical History?: Yes Additional Surgical History: Bilat prosethetic ankle, R knee surgery - Social History Smoking Status: Former Smoker Substance Use Type: None - Medications Home Medications: Home Medications Medication Instructions Recorded Confirmed Last Taken Type Potassium Chloride [K-Dur] 20 meq PO QDAY 05/12/14 05/12/14 05/11/14 History Benzonatate [Tessalon Perles] 100 mg PO Q8HR PRN #20 capsule 08/18/19 Unknown Rx Ondansetron [Zofran Odt] 4 mg PO Q8HR PRN #15 tab.rapdis 08/18/19 Unknown Rx Inhaler, Assist Devices [Space 1 each MC PRN PRN #1 spacer 08/21/19 Unknown Rx Chamber Plus] Prednisone [predniSONE 10 mg 10 mg PO .TAPER #1 tab.ds.pk 08/21/19 Unknown Rx (6-Day Pack, 21 Tabs)] Nebulizer Accessories [Aeroneb Go] 1 each MC PRN PRN #1 each 09/05/19 Unknown Rx Nebulizer [Aeroneb Go Nebulizer] 1 each MC PRN #1 each 09/05/19 Unknown Rx ALBUTEROL NEB's [Proventil 0.083% 2.5 mg IH TID PRN #30 neb 11/11/19 Unknown Rx NEBS] Albuterol Mdi (or & Nicu Only) 2 puff IH QID PRN #8.5 gram 11/11/19 Unknown Rx [ProAir HFA Inhaler] Azithromycin [Zithromax TAB] 250 mg PO QDAY #4 tablet 11/11/19 Unknown Rx predniSONE [Deltasone] 60 mg PO QDAY #20 tab 11/11/19 Unknown Rx Naproxen 500 mg PO BID PRN #16 tablet 09/16/20 Unknown Rx ED Physical Exam - General Limitations: No Limitations General appearance: alert, in no apparent distress - Head Head exam: Present: atraumatic, normocephalic - Eye Eye exam: Present: normal appearance - Respiratory Respiratory exam: Absent: respiratory distress - Cardiovascular Cardiovascular Exam: Present: regular rate - Extremities Exam Extremities exam: Present: full ROM, tenderness (Tenderness To palpation noted diffusely throughout the second through fourth digits of the right hand without swelling, bruising, erythema, or obvious deformities; full range of motion of the hand and fingers noted; normal capillary refill, sensation, and radial/ulnar pulses) - Neurological Exam Neurological exam: Present: alert, oriented X3 - Psychiatric Psychiatric exam: Present: normal affect, normal mood - Skin Skin exam: Present: warm, dry, intact, normal color. Absent: rash, erythema, pallor, ecchymosis ED Course Vital Signs 09/16/20 11:46 Temperature 98.2 F Pulse Rate 80 Respiratory 16 Rate Blood Pressure 174/95 [Right] O2 Sat by Pulse 96 Oximetry ED Medical Decision Making - Radiology Data Radiology results: report reviewed Right hand radiograph, 3 views. HISTORY: Pain after injury. COMPARISON: None FINDINGS: Mild diffuse osteopenia. Lunotriquetral coalition noted. Up to moderate osteoarthritis of the right hand, greatest at the thumb CMC joint. There is no acute fracture or malalignment. No fo jenn soft tissue abnormality. IMPRESSION: No acute osseous findings of the right hand. - Medical Decision Making 70-year-old -[place] female patient presents with complaints of right hand pain after an injury today. Patient states her hand was crushed on a metal part of the garage door prior to arrival. She rates her pain as 8/10 in severity states it worsens to touch and with movement. Patient denies any numbness/tingling or skin changes. Pain radiates up her arm per patient. She denies taking any OTC medication for her symptoms. Patient retains full range of motion of the hand and fingers. X-ray shows diffuse degenerative changes of the right hand and fingers without any acute bony abnormalities. Will treat with RICE method. Patient placed in Hiro wrap. Pain is controlled with Tylenol and ibuprofen here in the ED. Recommend follow-up with primary care in 3 to 5 days concerning for osteopenia. Discussed signs and symptoms that should prompt immediate return to the emergency department in detail with patient who verbalizes understanding. She is well-appearing, her vitals are stable, she is stable for discharge home. Critical care attestation.: If time is entered above; I have spent that time in minutes in the direct care of this critically ill patient, excluding procedure time. ED Disposition Clinical Impression: Elevated blood pressure reading Crushing injury of right hand Qualifiers: Encounter type: initial encounter Qualified Code(s): S67.21XA - Crushing injury of right hand, initial encounter Disposition: TO HOME OR SELFCARE Is pt being admited?: No Condition: Stable Instructions: Intermetacarpal Sprain Prescriptions: Naproxen 500 mg PO BID PRN #16 tablet PRN Reason: pain Referrals: PRIMARY CARE, [Primary Care Provider] - 3-5 Days
[2020-09-16] MEDS ORDERED: IBUPROFEN 600 MG TAB PO ONE (13:22)
[2020-09-16] MEDS ORDERED: ACETAMINOPHEN 325 MG TAB PO ONE (13:22)
[2020-09-16] MEDS ORDERED: IBUPROFEN 800 MG TAB PO ONE (13:30)
== END 2020-09-16 13:15 | disposition home or self-care (01) ==
LOC: ED 11:41
DX: S67.21XA Crushing injury of right hand, initial encounter (principal); I10 Essential (primary) hypertension; Z98.890 Other specified postprocedural states; Z87.891 Personal history of nicotine dependence; Z79.2 Long term (current) use of antibiotics; Z79.899 Other long term (current) drug therapy; Z88.0 Allergy status to penicillin; Z88.2 Allergy status to sulfonamides; Z88.8 Allergy status to other drugs, medicaments and biological substances; X58.XXXA Exposure to other specified factors, initial encounter; Y93.89 Activity, other specified; Y92.89 Other specified places as the place of occurrence of the external cause; Y99.8 Other external cause status
CPT/HCPCS: 99283

== ENCOUNTER 2021-04-10 12:04 | Emergency (ER) | payer MEDICARE ==
--- NOTE | 2021-04-10 12:43 | Emergency Department Report ---
HPI - General Chief Complaint: Weakness - HPI HPI: This is a 71-year-old -[place] female presents to the emergency department with a complaint of a 3-day history of being "sick." Patient says that she has had a fever with a T-max of 102 yesterday. She also complains of a mixed dry and productive cough, body aches, nausea, vomiting and diarrhea. Patient denies any past medical history. She is vaccinated against COVID-19 but does not yet have the booster. No recent travel or sick contacts at home. 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 She has been using Tylenol and [id number] cough syrup for her symptoms. ED Past Medical Hx - Past Medical History Hx Hypertension: Yes Additional medical history: hyperlipidemia - Surgical History Additional Surgical History: Bilat prosethetic ankle, R knee surgery - Social History Smoking Status: Former Smoker Substance Use Type: None - Medications Home Medications: Home Medications Medication Instructions Recorded Confirmed Last Taken Type Potassium Chloride [K-Dur] 20 meq PO QDAY 05/12/14 05/12/14 05/11/14 History Benzonatate [Tessalon Perles] 100 mg PO Q8HR PRN #20 capsule 08/18/19 Unknown Rx Ondansetron [Zofran Odt] 4 mg PO Q8HR PRN #15 tab.rapdis 08/18/19 Unknown Rx Inhaler, Assist Devices [Space 1 each MC PRN PRN #1 spacer 08/21/19 Unknown Rx Chamber Plus] Prednisone [predniSONE 10 mg 10 mg PO .TAPER #1 tab.ds.pk 08/21/19 Unknown Rx (6-Day Pack, 21 Tabs)] Nebulizer Accessories [Aeroneb Go] 1 each MC PRN PRN #1 each 09/05/19 Unknown Rx Nebulizer [Aeroneb Go Nebulizer] 1 each MC PRN #1 each 09/05/19 Unknown Rx ALBUTEROL NEB's [Proventil 0.083% 2.5 mg IH TID PRN #30 neb 11/11/19 Unknown Rx NEBS] Albuterol Mdi (or & Nicu Only) 2 puff IH QID PRN #8.5 gram 11/11/19 Unknown Rx [ProAir HFA Inhaler] Azithromycin [Zithromax TAB] 250 mg PO QDAY #4 tablet 11/11/19 Unknown Rx predniSONE [Deltasone] 60 mg PO QDAY #20 tab 11/11/19 Unknown Rx Naproxen 500 mg PO BID PRN #16 tablet 09/16/20 Unknown Rx Benzonatate [Tessalon Perles] 100 mg PO Q8HR PRN #20 capsule 04/10/21 Unknown Rx Fluticasone [Flonase] 1 spray NS QDAY #1 bottle 04/10/21 Unknown Rx Ondansetron [Zofran Odt] 4 mg PO Q8HR PRN #15 tab.rapdis 04/10/21 Unknown Rx ED Review of Systems ROS: Stated complaint: GEN WEAKNESS Other details as noted in HPI Comment: All other systems reviewed and negative Constitutional: chills, fever Eyes: denies: eye pain, vision change ENT: congestion. denies: ear pain Respiratory: cough. denies: shortness of breath Cardiovascular: denies: chest pain, palpitations Gastrointestinal: nausea, vomiting, diarrhea. denies: abdominal pain Genitourinary: denies: dysuria, discharge Musculoskeletal: denies: back pain, arthralgia Skin: denies: rash, lesions Neurological: denies: headache, weakness Physical Exam - Physical Exam Physical Exam: GENERAL: The patient is well-developed well-nourished. HENT: Normocephalic. Atraumatic. Patient has moist mucous membranes. EYES: Extraocular motions are intact. NECK: Supple. Trachea is midline. CHEST/LUNGS: Clear to auscultation. Occasional productive sounding cough heard during examination. No tachypnea or accessory muscle use. There is no respiratory distress noted. HEART/CARDIOVASCULAR: Regular. There is no tachycardia. There is no murmur. ABDOMEN: Abdomen is soft, nontender. Patient has normal bowel sounds. SKIN: Skin is warm and dry. NEURO: The patient is awake, alert, and oriented. The patient is cooperative. Normal speech. MUSCULOSKELETAL: There is no tenderness or deformity. There is no limitation range of motion. ED Medical Decision Making - Radiology Data Radiology results: image reviewed interpreted by me: Chest x-ray does not show any acute process. There are no pleural effusions, obvious pneumonia and there is no pneumothorax. No widened mediastinum. - Medical Decision Making This patient presents with a few days of a mixed dry and productive cough, and feeling "sick." Patient says that she had a recent fever but is afebrile here. Occasional cough heard during exam medication but otherwise the patient does not appear in any respiratory or acute distress. Patient has some mild hypertension but otherwise vital signs are reassuring including being afebrile and no hypoxia. She is vaccinated against COVID-19. Chest x-ray does not show any pneumonia, pleural effusions, pneumothorax, widened mediastinum, or any other acute process. Patient will be discharged home with an antitussive, and albuterol inhaler and some Flonase. She has been instructed to follow-up with her primary care physician and return to the ER with any worsening of her symptoms or with any acute distress. Critical Care Time: No Critical care attestation.: If time is entered above; I have spent that time in minutes in the direct care of this critically ill patient, excluding procedure time. ED Disposition Clinical Impression: Upper respiratory infection Disposition: 01 HOME / SELF CARE / HOMELESS Is pt being admited?: No Condition: Stable Instructions: Upper Respiratory Infection, Adult Additional Instructions: Please follow-up with a primary care physician in the next few days. Do not return to work until you are without a fever for 24 hours without having to use medication to do so. You can use Tylenol every 4-6 hours and ibuprofen every 6-8 hours, using dosing on the back of the bottle, as needed for fever or discomfort. Return to the emergency department with any worsening of your symptoms, new or concerning symptoms not addressed during this current emergency department visit, or with any acute distress. Prescriptions: Fluticasone [Flonase] 1 spray NS QDAY #1 bottle Benzonatate [Tessalon Perles] 100 mg PO Q8HR PRN #20 capsule PRN Reason: Cough Ondansetron [Zofran Odt] 4 mg PO Q8HR PRN #15 tab.rapdis PRN Reason: Nausea Referrals: PCP, Your [Other] - 3-5 Days Time of Disposition: 13:06
--- NOTE | 2021-04-10 13:01 | XRay Report ---
CHEST 2 VIEWS, 04/10/2021 INDICATION: Shortness of breath COMPARISON: Chest radiograph, 11/11/2019 FINDINGS: Support devices: None. Heart: The cardiac silhouette is normal in size. Lungs/pleura: The lungs are clear of focal airspace disease or significant pleural effusion. Additional findings: There are mild bony degenerative changes of the thoracic spine. IMPRESSION: 1. No evidence of acute cardiopulmonary process. Signer Name: Livia Schmidt MD Signed: 04/10/2021 12:56 PM Workstation Name: [id number]
[2021-04-10 13:14] VITALS: BP 170/93
== END 2021-04-10 13:15 | disposition home or self-care (01) ==
LOC: ED 12:04
DX: J06.9 Acute upper respiratory infection, unspecified (principal); I10 Essential (primary) hypertension; Z87.891 Personal history of nicotine dependence
CPT/HCPCS: 71046; 99283

== ENCOUNTER 2022-01-30 16:16 | Emergency (ER) | payer MEDICARE | END 2022-01-30 16:25 | disposition left against medical advice (07) | LOC: ED 16:16 | DX: R06.00 Dyspnea, unspecified (principal); Z53.21 Procedure and treatment not carried out due to patient leaving prior to being seen by health care provider ==